=== PATIENT | female | born 1935 | race Caucasian/White ===

== ENCOUNTER 2020-10-05 18:45 | IRF | payer MEDICARE, SELFPAY ==
--- NOTE | ~2020-10-05 | CT_ITS ---
EXAMINATION: CT brain wo con DATE: 10/11/2020 10:58 INDICATION: Change in mental status TECHNIQUE: Computed tomography (CT) of the head was performed without intravenous contrast. Sagittal and coronal reconstructions were performed. The mA was adjusted according to patient size. Iterative reconstruction technique was employed. The dose-length product was 605.33 mGy-cm. COMPARISON: None FINDINGS: No acute intracranial hemorrhage, acute infarction or abnormal extra axial fluid collection. There is mild scattered white matter hypoattenuation consistent with chronic small vessel ischemic disease. S ymmetric prominence of the sulci and subarachnoid spaces overlying the convexities consistent with mi ld to moderate age-appropriate diffuse cerebral volume loss. Ventricles are normal and symmetric. No mass/mass effect. Changes of bilateral intraocular lens replacement. Postoperative change of prior l eft mastoidectomy with small amount of partially air containing debris at the mastoidectomy defect. A dditional small amount of debris/cerumen at the right external auditory canal. Right mastoid air cell s are clear. Mild mucosal thickening at the right maxillary sinus. Intracranial calcified cerebral at herosclerosis is noted. IMPRESSION: 1. No acute intracranial process. 2. Age-related changes including mild to moderate diffuse volume loss and mild scattered white matter hypoattenuation consistent with chronic small vessel ischemic disease. Reviewed, dictated and finalized at location B. TION DIRECTOR IMPRESSION: 1. No acute intracranial process. 2. Age-related changes including mild to moderate diffuse volume loss and mild scattered white matter hypoattenuation consistent with chronic small vessel isc hemic disease.
--- NOTE | 2020-10-05 18:45 | ADMGEN ---
This patient, Evelyne Goldberg, was admitted to [facility] Room 223-01. Patient/family oriented to hospital policies and general routines including ID bracelet, bed and alarms, visiting hours, pain management, procedures, bathroom and other care routines, personal items, smoking policy, room service/diet, and visiting hours. Information on how to activate the Rapid Response Team has been discussed. Patient/Family are encouraged to report perceived risks to care and to ask questions if they do not understand what they are told or what they should do.
[2020-10-05 22:00] VITALS: BP 149/50; PULSE 73; RESP 20; TEMP 36.9; O2SAT 98
[2020-10-05 23:55] VITALS: PULSE 73
[2020-10-05] MEDS: METOPROLOL TARTRATE 25 MG TABLET PO (23:55)
--- NOTE | 2020-10-06 00:46 | PHAR ---
PHARMACY VERIFIED HOME MED: * USE FROM HOME * Ibrutinib [Imbruvica] 140 mg Capsule Take 2 capsules by mouth daily
[2020-10-06 06:00] VITALS: BP 160/53; PULSE 66; RESP 18; TEMP 36.6; O2SAT 94
[2020-10-06] MEDS: POTASSIUM CHLORIDE 10 MEQ TABLET.ER PO (09:41)
[2020-10-06 09:42] VITALS: PULSE 66
[2020-10-06] MEDS: hydroCHLOROthiazide 25 MG TABLET PO (09:42)
[2020-10-06] MEDS: METOPROLOL TARTRATE 25 MG TABLET PO ×2 (09:42→20:31)
[2020-10-06] MEDS: FAMOTIDINE 20 MG TABLET PO ×2 (09:42→17:47)
[2020-10-06] MEDS: FOLIC ACID 1 MG TABLET PO (09:42)
[2020-10-06] MEDS: SIMVASTATIN 20 MG TABLET PO (09:42)
[2020-10-06] MEDS: BACLOFEN 10 MG TABLET 20 MG PO ×3 (09:42→17:47)
[2020-10-06] MEDS: THERAPEUTIC MULTIVITAMINS/MINERALS TAB (*BKC) 1 TABLET PO (09:42)
[2020-10-06] MEDS: CYANOCOBALAMIN INJ 1,000 MCG/ML VIAL 1000 MCG IM (12:21)
[2020-10-06 13:06] VITALS: BMI 32.1
[2020-10-06 13:08] VITALS: BMI 32.1
[2020-10-06 14:00] VITALS: BP 129/43; PULSE 68; RESP 16; TEMP 36.7; O2SAT 97
--- NOTE | 2020-10-06 15:11 | RPD ---
INDIVIDUALIZED PLAN OF CARE FOR Evelyne Goldberg Brief Synthesis of Pre-Admission Screen, Post-Admission Evaluation and Therapy Evaluations: The patient presents to rehab with severe T11 compression fracture and subsequent posterior bipedicular approach vertebral body augmentation. Comorbidities includes chronic lymphocytic leukemia, lymphoma, hyperlipidemia, hypertension, lymphedema, macrocytosis, pancreatitis, restless leg syndrome, vitamin B12 deficiency anemia, UTI, CELSA, and hypokalemia. The complexity of the patient's medical management, nursing, and therapy needs require an inpatient rehab hospital stay with a physician-led interdisciplinary team approach. The patient?s needs will be best met in an intensive program vs. at a lower level of care. The patient requires physician services for medical oversight, management of postop complications in setting of present comorbidities, and pain management. She will be followed at least three times a week by the rehabilitation physician. Labs will be drawn to monitor blood counts and electrolytes periodically. The patient requires nursing services for DVT prophylactics, infection protection, medication management and education, pressure relief, and wound care. Deficits include:ADLs, Balance, Endurance, Family Training/Education, Mobility, Pain Management, ROM, Safety, Strength, Transfers Divemaster/Case Management for: Discharge Planning and Patient/Family Counseling Physical Therapy: 5 days per week for 90 minutes. Treatments may include: Therapeutic Exercise, Gait Training, Neuromuscular Re-education, Transfer Training, Community Reintegration, Bed Mobility, Patient/Family Education, Wheelchair Mobility Group Therapy/Concurrent Therapy Rationales: -Improve attention span during functional activities in a distracted environment. -Enhance problem solving and/or adequate judgment skills during functional activities in a distracted environment. -Promote increased safety awareness in a distracted environment to reduce fall risk with functional tasks, transfers, and ambulation to allow a more safe, self-sufficient return to the home environment. -Improve dynamic balance skills to promote safety and independence with functional activities in a distracted environment for maximum gain. Occupational Therapy: 5 days per week for 90 minutes. Treatments may include: Therapeutic Exercise, Therapeutic Activity, Cognitive Training, Self-Care Transfer Training, Community Reintegration, Home Management, Patient/Family Education, Wheelchair Mobility Training, Energy Conservation Training Group Therapy/Concurrent Therapy Rationales: -Allow therapist to observe and teach generalization and carry-over of skills learned in individual therapy. -Enhance problem solving and sequencing skills during therapeutic activities in a distracted environment. -Promote increased safety awareness in a realistic setting to reduce fall risk with functional tasks due to visual and verbal distractions. -Increase functional level with ADLs, ADL transfers and use of adaptive equipment through therapeutic activities with others while promoting safety to allow a more safe, self-sufficient return home. Medical Prognosis: Good Anticipated Length of Stay: 14 days Rehab Goals: Eating Goal: 06-Independent Oral Hygiene Goal: 06-Independent Toileting Hygiene Goal: 06-Independent Shower/Bathe Self Goal: 06-Independent Upper Body Dressing Goal: 06-Independent Lower Body Dressing Goal: 06-Independent Putting On/Taking Off Footwear Goal: 06-Independent Rolling Left and Right Goal: 06-Independent Sit to Lying Goal: 06-Independent Lying to Sitting on Side of Bed Goal: 06-Independent Sit to Stand Goal: 06-Independent Chair/[id number] Transfer Goal: 06-Independent Toilet Transfer Goal: 06-Independent Car Transfer Goal: 06-Independent Walk 10' Goal: 06-Independent Walk 50' with Two Turns Goal: 06-Independent Walk 150' Goal: 06-Independent Walk 10' on Uneven S
--- NOTE | 2020-10-06 16:47 | WPDREHABHP ---
H&P: HPI History of Present Illness Date/Time: 10/06/20 16:47 Chief complaint: T11 Compression Fx Narrative: The patient's primary rehab impairment category is Spinal cord dysfunction non traumatic in nature The etiologic diagnosis is severe T11 compression fracture I saw this patient [id number] on on October 06, 2020 at 12:30 p.m. The patient is a 85 years old female with a past medical history significant for chronic lymphocytic leukemia, hypertension, lipidemia, B12 deficiency presented to [facility] with Hospital Emergency Room Department on October 01, 2020 for symptoms of vomiting and back pain. She reported that she has had mid lower back pain since , when she was lifting a turkey unheard and audible crack with sudden onset of pain. Imaging in Emergency Room Department showed severe T11 compression fracture. Lipase found to be elevated at 805. Potassium level at 3.4, IV KCl order creatinine 1.56 with baseline of 1.22, orders for IV fluids, hold losartan, nonobstructing stones observed on CT scan, right upper kidney calcification noted on CT scan. CT imaging revealed abnormalities of the pancreas specifically noted a cyst versus Fatty versus neoplastic mass. She was also found with a urinary tract infection was started on IV clindamycin and morphine for pain chronic finding on CBC with macrocytosis identified in relation to chronic lymphocytic leukemia. Twelve 5 the patient transition to p.o. Bactrim DS for UTI, hypokalemia resolved, achy I improving, and T11 compression fracture pain controlled with medication and IR consult. On October 04, 2020 the patient underwent a T11 posterior bi pedicular approach vertebral body augmentation. IR abnormal CT finding of cyst versus new plasma stable since 10/30 017 thus likelihood of malignancy is low, IR recommended repeated MRI CT in 1 year. October 05, 2020 the patient was mod assist for transfer the patient will not DC to rehab on DVT prophylaxis. As Bactrim order for UTI that will be completed on October 06, 2020 Therapy was initiated at the acute care facility and the patient transferred to us from [facility] on October 05, 2020 FALLS OR SURGERIES: the patient has had surgery in the last 100 days( [id number] kyphoplasty posterior bi pedicular approach of the body augmentation), patient has had 1 fall in the past year, no falls with injury in the past year. 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 PAST SURGICAL HISTORY: Cholecystectomy 2008, hysterectomy 2008. SOCIAL HISTORY: . The patient lives alone in a 1 story home with 2 steps to enter. The patient states her kids are able stay with her falling rehab if she needs assistance. Her son in [facility] arrangements have already been made for the patient to have someone with her 247 following rehab DC. The patient was independent in all ADLs and IADL S prior to this hospitalization, he intermittently uses a quad cane with ambulating outside of familiar surroundings for safety. The patient denies tobacco, alcohol, or illicit drug use, FAMILY HISTORY: mother had cancer. Father had cancer. Brother had pancreatic cancer. PRIOR LEVEL OF FUNCTION: Eating was [INDEPENDENT] Oral Care was [INDEPENDENT] Toileting Hygiene was [INDEPENDENT] Shower/Bathing was [INDEPENDENT] Upper Body Dressing was [INDEPENDENT] Lower Body Dressing was [INDEPENDENT] Donning/Munden Footwear was [INDEPENDENT] Rolling Left and Right was [INDEPENDENT] Sit to Lying was [INDEPENDENT] Lying to Sitting was [INDEPENDENT] Sit to Stand was [INDEPENDENT] Bed to Chair Transfers was [INDEPENDENT] Toilet Transfers was [INDEPENDENT] Walking was [INDEPENDENT] [>500 feet] with a Quad cane
[2020-10-06 20:31] VITALS: PULSE 80
[2020-10-07] VITALS (8 sets, daily range): BP systolic 130–147; BP diastolic 52–67; PULSE 58–81; RESP 18–20; TEMP 35.9–36.6; O2SAT 96–98
[2020-10-07 05:17] LABS: Anion Gap 5 mmol/L (8-16); Blood Urea Nitrogen 23 mg/dL (7-17); Calcium 9.3 mg/dL (8.4-10.2); Carbon Dioxide 28 mmol/L (22-30); Chloride 105 mmol/L (98-107); Estimated CRCL calculation 23 ml/min; Estimated Glomerular Filt Rate 36; Glucose 107 mg/dL (65-105); Potassium 3.7 mmol/L (3.4-5.0); Sodium 138 mmol/L (137-145)
[2020-10-07 05:19] LABS: Basophils Percent Auto 0.3 % (0.2-1.2); Eosinophils Absolute Auto 0.1 K/mm3 (0-0.3); Eosinophils Percent Auto 1.4 % (0-4.4); Hematocrit 28.5 % (37.0-47.0); Hemoglobin 9.2 g/dL (12.0-15.0); Immature Granulocyte Absolute 0.17 K/mm3 (0.00-0.031); Immature Granulocyte Percent A 1.8 % (0-0.5); Lymphocytes Absolute Auto 2.95 K/mm3 (0.9-3.2); Lymphocytes Percent Auto 32.1 % (18.3-44.2); Mean Corpuscular HGB Conc 32.3 g/dl (32-36); Mean Corpuscular Volume 108.4 fl (80-100); Mean Platelet Volume 11.4 fl (7.4-10.4); Monocytes Absolute Auto 1.1 K/mm3 (0.1-0.6); Neutrophils Absolute Auto 4.8 K/mm3 (1.3-6.7); Neutrophils Percent Auto 52.4 % (45.5-73.1); Platelet Count Result 159 k/mm3 (150-375); Red Blood Count 2.63 M/mm3 (4.2-5.4); Red Cell Distribution Width 14.4 % (11.5-14.5); White Blood Count 9.2 K/mm3 (4.5-10.0)
[2020-10-07] MEDS: METOPROLOL TARTRATE 25 MG TABLET PO ×2 (09:06→20:20)
[2020-10-07] MEDS: THERAPEUTIC MULTIVITAMINS/MINERALS TAB (*BKC) 1 TABLET PO (09:06)
[2020-10-07] MEDS: SIMVASTATIN 20 MG TABLET PO (09:06)
[2020-10-07] MEDS: FAMOTIDINE 20 MG TABLET PO ×2 (09:06→17:36)
[2020-10-07] MEDS: hydroCHLOROthiazide 25 MG TABLET PO (09:06)
[2020-10-07] MEDS: FOLIC ACID 1 MG TABLET PO (09:06)
[2020-10-07] MEDS: POTASSIUM CHLORIDE 10 MEQ TABLET.ER PO (09:07)
[2020-10-07] MEDS: BACLOFEN 10 MG TABLET 20 MG PO ×3 (09:08→17:36)
[2020-10-07] MEDS: ACETAMINOPHEN 325 MG TABLET 650 MG PO (11:27)
[2020-10-08 06:00] VITALS: BP 152/47; PULSE 59; RESP 20; TEMP 36.7; O2SAT 96
[2020-10-08 09:53] VITALS: PULSE 72
[2020-10-08] MEDS: METOPROLOL TARTRATE 25 MG TABLET PO ×2 (09:53→20:20)
[2020-10-08] MEDS: hydroCHLOROthiazide 25 MG TABLET PO (09:54)
[2020-10-08] MEDS: THERAPEUTIC MULTIVITAMINS/MINERALS TAB (*BKC) 1 TABLET PO (09:54)
[2020-10-08] MEDS: SIMVASTATIN 20 MG TABLET PO (09:55)
[2020-10-08] MEDS: FOLIC ACID 1 MG TABLET PO (09:55)
[2020-10-08] MEDS: BACLOFEN 10 MG TABLET 20 MG PO (09:55)
[2020-10-08] MEDS: FAMOTIDINE 20 MG TABLET PO ×2 (09:55→17:29)
[2020-10-08] MEDS: POTASSIUM CHLORIDE 10 MEQ TABLET.ER PO (09:56)
--- NOTE | 2020-10-08 10:09 | WPDNEURORHBP ---
Subjective Date/time seen: 10/08/20 10:09 85 years old lady admitted to the rehab floor with T11 compression fracture and spinal cord dysfunction in addition to chronic lymphocytic leukemia, hypertension, hyperlipidemia, B12 deficiency, since admission she has been noted to be very drowsy has been receiving baclofen 20 mg t.i.d. which were today decreased to10mg t.i.d. in addition other medications are okay also her urine will be repeated routine lab is normal Review of Systems Review of Systems: All systems reviewed & are unremarkable except as noted in HPI and below Functional Status Ambulation Ability Ability to Ambulate 10 Feet: Contact Guard Ability to Ambulate 50 Feet With 2 Turns: Contact Guard Ambulation Assistive Devices: Walker, Wheeled Exam Narrative: Exam Narrative: on examination she is awake alert cooperative trying to take the medication with her breakfast but having some difficulties in swallowing has to be pushed with the p.o. feeding and fluid otherwise her speech is not dysphasic not dysarthric though of low volume heart is regular lungs clear with no rhonchi or crepitations abdomen is soft nontender and neurological examination unchanged Objective Data Vital Signs Vital Signs: Vital Signs - 24 hr 10/07/20 11:27 10/07/20 14:00 10/07/20 20:20 Temperature 36.6 C 35.9 C L Pulse Rate 60 67 Respiratory Rate 18 Blood Pressure 141/52 H Pulse Oximetry 97 10/07/20 22:00 10/08/20 06:00 10/08/20 09:53 Temperature 36.4 C L 36.7 C Pulse Rate 58 L 59 L 72 Respiratory Rate 20 20 Blood Pressure 147/55 H 152/47 H Pulse Oximetry 97 96 Intake/Output Intake/Output: Intake & Output 10/05/20 10/06/20 10/07/20 10/08/20 23:59 23:59 23:59 23:59 Intake Total 480 240 120 Balance 480 240 120 Meds/Results Medications: Active Medications Generic Name Dose Route Start Last Admin Trade Name Freq PRN Reason Stop Dose Admin Acetaminophen 650 mg 10/07/20 11:17 10/07/20 11:27 Acetaminophen 325 Mg Tablet PO 650 mg Q6H PRN Administration Mild Pain (1-3) or Fever Baclofen 10 mg 10/08/20 13:00 Baclofen 10 Mg Tablet PO TID [facility] Cyanocobalamin 1,000 mcg 10/06/20 09:00 10/06/20 12:21 Cyanocobalamin Inj 1,000 Mcg/Ml Vial IM 1,000 mcg Q30D ROSALINE Administration Famotidine 20 mg 10/06/20 09:00 10/08/20 09:55 Famotidine 20 Mg Tablet PO 20 mg BID ROSALINE Administration Folic Acid 1 mg 10/06/20 09:00 10/08/20 09:55 Folic Acid 1 Mg Tablet PO 1 mg DAILY ROSALINE Administration Hydrochlorothiazide 25 mg 10/06/20 09:00 10/08/20 09:54 Hydrochlorothiazide 25 Mg Tablet PO 25 mg DAILY ROSALINE Administration Metoprolol Tartrate 25 mg 10/05/20 22:45 10/08/20 09:53 Metoprolol Tartrate 25 Mg Tablet PO 25 mg Q12HR ROSALINE Administration Multivitamins/Calcium 1 tablet 10/06/20 09:00 10/08/20 09:54 Therapeutic Multivitamins/Minerals Tab (*Bkc) PO 1 tablet DAILY ROSALINE Administration Potassium Chloride 10 meq 10/06/20 08:00 10/08/20 09:56 Potassium Chloride 10 Meq Tablet.Er PO 10 meq DAILY@0800 ROSALIEN Administration Simvastatin 20 mg 10/06/20 09:00 10/08/20 09:55 Simvastatin 20 Mg Tablet PO 20 mg DAILY ROSALINE Administration Progress Note: A&P Assessment and Plan (1) Restless leg syndrome: Code(s): G25.81 - Restless legs syndrome Status: Acute (2) Lymphedema: Code(s): I89.0 - Lymphedema, not elsewhere classified Status: Acute (3) UTI (urinary tract infection): Code(s): N39.0 - Urinary tract infection, site not specified Status: Acute (4) Pancreatic cyst: Code(s): K86.2 - Cyst of pancreas Status: Acute (5) B12 deficiency: Code(s): E53.8 - Deficiency of other specified B group vitamins Status: Acute (6) Hyperlipidemia: Code(s): E78.5 - Hyperlipidemia, unspecified Status: Acute (7) Hypertension: Code(s): I10 - Essential (primary) hypert
[2020-10-08] MEDS: ACETAMINOPHEN 325 MG TABLET 650 MG PO (11:39)
[2020-10-08 12:04] LABS: Add Urine Microscopic? YES; Appearance Urine Clear (Clear); Bacteria Urine Trace /hpf; Bilirubin Urine Negative (Negative); Blood Urine Negative (Negative); Color Urine Yellow (Yellow); Glucose Urine UA Negative (Negative); Ketones Urine Negative (Negative); Leukocyte Esterase Ur Trace LEU/UL (Negative); Mucus Urine Rare /lpf; Nitrate Urine Negative (Negative); Protein Urine Negative (Negative); Specific Grav Ur 1.012 (1.001-1.035); Squamous Epithelial Cell Urine Rare /hpf (Few); Urobilinogen Urine Negative mg/dL (<2.0); WBC Urine 16-20 /hpf
[2020-10-08] MEDS: BACLOFEN 10 MG TABLET PO ×2 (13:05→17:29)
[2020-10-08 14:00] VITALS: BP 138/53; PULSE 63; RESP 20; TEMP 36.3; O2SAT 97
[2020-10-08 20:20] VITALS: PULSE 72
[2020-10-08 20:58] VITALS: BP 143/54; PULSE 72; RESP 18; TEMP 36.2; O2SAT 94
[2020-10-08 21:00] VITALS: BP 143/54; PULSE 72; RESP 18; TEMP 36.2; O2SAT 94
[2020-10-09 05:25] VITALS: BP 151/48; PULSE 76; RESP 18; TEMP 36.4; O2SAT 97
[2020-10-09] MEDS: FOLIC ACID 1 MG TABLET PO (08:38)
[2020-10-09] MEDS: FAMOTIDINE 20 MG TABLET PO ×2 (08:38→17:13)
[2020-10-09] MEDS: POTASSIUM CHLORIDE 10 MEQ TABLET.ER PO (08:38)
[2020-10-09 08:39] VITALS: PULSE 78
[2020-10-09] MEDS: SIMVASTATIN 20 MG TABLET PO (08:39)
[2020-10-09] MEDS: THERAPEUTIC MULTIVITAMINS/MINERALS TAB (*BKC) 1 TABLET PO (08:39)
[2020-10-09] MEDS: METOPROLOL TARTRATE 25 MG TABLET PO ×2 (08:39→20:15)
[2020-10-09] MEDS: hydroCHLOROthiazide 25 MG TABLET PO (08:39)
[2020-10-09] MEDS: BACLOFEN 10 MG TABLET PO ×3 (08:40→17:13)
--- NOTE | 2020-10-09 11:31 | WPDNEURORHBP ---
Subjective Date/time seen: 10/09/20 11:31 85 years old lady admitted to the rehab floor with T11 compression fracture and spinal cord dysfunction in addition to the ongoing diagnosis of 1. Chronic lymphocytic leukemia 2. Hyper 3. Hyperlipidemia 4. B12 deficiency during the hospitalization here she was becoming excessively sleepy baclofen was decreased [id number] t.i.d. to10mg t.i.d. and she looks better. Routine lab is normal except hemoglobin is 9.2 with MCV 108.4 definitely abnormal that is most likely secondary to B12 deficiency for which she is being treated her BUN is 23 with creatinine 1.4 and GFR only 36 Review of Systems Review of Systems: All systems reviewed & are unremarkable except as noted in HPI and below Functional Status Ambulation Ability Ability to Ambulate 10 Feet: Minimum Assistance X 1 Ability to Ambulate 50 Feet With 2 Turns: Contact Guard Ability to Ambulate 150 Feet: Contact Guard Ambulation Assistive Devices: Walker, Standard Exam Narrative: Exam Narrative: awake alert operative has no specific complaints. Ear nose throat examination normal. Neck is supple with no restriction of the range of motion and no thyromegaly lymphadenopathy or cervical bruits. Heart regular with no murmur. Lungs clear to auscultation with no rhonchi or crepitations. Abdomen is soft with no organomegaly normal bowel sounds and nontender. Neurological examination revealed her to be awake alert following the instructions very well speech not dysphasic not dysarthric nor dysphonic. Extraocular movements are full with no nystagmus. Facial symmetric. With no sensory deficit. Tongue in the midline. Motor examination generally decreased but no focal motor deficit. She has decreased sensation distally in both lower extremities with sluggish reflexes at the knees and ankles and plantar responses are downgoing. She had difficulties in performing heel to knee to roberts but she was able to perform finger to nose to finger. Objective Data Vital Signs Vital Signs: Vital Signs - 24 hr 10/08/20 14:00 10/08/20 20:20 10/08/20 20:58 Temperature 36.3 C L 36.2 C L Pulse Rate 63 72 72 Respiratory Rate 20 18 Blood Pressure 138/53 L 143/54 H Pulse Oximetry 97 94 10/08/20 21:00 10/09/20 05:25 10/09/20 08:39 Temperature 36.2 C L 36.4 C Pulse Rate 72 76 78 Respiratory Rate 18 18 Blood Pressure 143/54 H 151/48 H Pulse Oximetry 94 97 Intake/Output Intake/Output: Intake & Output 10/06/20 10/07/20 10/08/20 10/09/20 23:59 23:59 23:59 23:59 Intake Total 480 240 240 240 Balance 480 240 240 240 Meds/Results Medications: Active Medications Generic Name Dose Route Start Last Admin Trade Name Freq PRN Reason Stop Dose Admin Acetaminophen 650 mg 10/07/20 11:17 10/08/20 11:39 Acetaminophen 325 Mg Tablet PO 650 mg Q6H PRN Administration Mild Pain (1-3) or Fever Baclofen 10 mg 10/08/20 13:00 10/09/20 08:40 Baclofen 10 Mg Tablet PO 10 mg TID ROSALINE Administration Cyanocobalamin 1,000 mcg 10/06/20 09:00 10/06/20 12:21 Cyanocobalamin Inj 1,000 Mcg/Ml Vial IM 1,000 mcg Q30D ROSALINE Administration Famotidine 20 mg 10/06/20 09:00 10/09/20 08:38 Famotidine 20 Mg Tablet PO 20 mg BID ROSALINE Administration Folic Acid 1 mg 10/06/20 09:00 10/09/20 08:38 Folic Acid 1 Mg Tablet PO 1 mg DAILY ROSALINE Administration Hydrochlorothiazide 25 mg 10/06/20 09:00 10/09/20 08:39 Hydrochlorothiazide 25 Mg Tablet PO 25 mg DAILY ROSALINE Administration Metoprolol Tartrate 25 mg 10/05/20 22:45 10/09/20 08:39 Metoprolol Tartrate 25 Mg Tablet PO 25 mg Q12HR ROSALINE Administration Multivitamins/Calcium 1 tablet 10/06/20 09:00 10/09/20 08:39 Therapeutic Multivitamins/Minerals Tab (*Bkc) PO 1 tablet DAILY ROSALINE Administration Potassium Chloride 10 meq 10/06/20 08:00 10/09/20 08:38 Potassium Chloride 10 Meq Tablet.Er PO 10 meq DAILY@0800 ROSALINE Administration Simvastatin 20 mg 1
[2020-10-09 14:00] VITALS: BP 141/46; PULSE 63; RESP 20; TEMP 36.2; O2SAT 99
[2020-10-09 20:00] VITALS: PULSE 73; RESP 18; O2SAT 99
[2020-10-09 20:15] VITALS: PULSE 73
[2020-10-09] MEDS: ACETAMINOPHEN 325 MG TABLET 650 MG PO (20:21)
[2020-10-09 22:00] VITALS: BP 135/44; PULSE 73; RESP 18; TEMP 36.9; O2SAT 99
[2020-10-10] VITALS (7 sets, daily range): BP systolic 118–135; BP diastolic 40–53; PULSE 65–89; RESP 12–18; TEMP 36.8–37.1; O2SAT 93–97
[2020-10-10] MEDS: POTASSIUM CHLORIDE 10 MEQ TABLET.ER PO (08:57)
[2020-10-10] MEDS: FAMOTIDINE 20 MG TABLET PO ×2 (08:57→17:23)
[2020-10-10] MEDS: THERAPEUTIC MULTIVITAMINS/MINERALS TAB (*BKC) 1 TABLET PO (08:57)
[2020-10-10] MEDS: SIMVASTATIN 20 MG TABLET PO (08:58)
[2020-10-10] MEDS: BACLOFEN 10 MG TABLET PO ×3 (08:58→17:23)
[2020-10-10] MEDS: hydroCHLOROthiazide 25 MG TABLET PO (08:58)
[2020-10-10] MEDS: FOLIC ACID 1 MG TABLET PO (08:58)
[2020-10-10] MEDS: METOPROLOL TARTRATE 25 MG TABLET PO ×2 (08:58→20:26)
--- NOTE | 2020-10-10 13:07 | PC.NURSE ---
urine culture/sensitivity results received and reported to Dr. Keating, initial dose of bactrim DS given this AM, no adverse affects noted at this time
[2020-10-10] MEDS: ACETAMINOPHEN 325 MG TABLET 650 MG PO (20:35)
[2020-10-11 06:00] VITALS: BP 109/30; PULSE 59; RESP 14; TEMP 36.5; O2SAT 95
[2020-10-11] MEDS: POTASSIUM CHLORIDE 10 MEQ TABLET.ER PO (07:42)
[2020-10-11] MEDS: hydroCHLOROthiazide 25 MG TABLET PO (08:25)
[2020-10-11] MEDS: BACLOFEN 10 MG TABLET PO ×3 (08:25→16:38)
[2020-10-11] MEDS: FAMOTIDINE 20 MG TABLET PO ×2 (08:25→16:37)
[2020-10-11] MEDS: FOLIC ACID 1 MG TABLET PO (08:25)
[2020-10-11] MEDS: THERAPEUTIC MULTIVITAMINS/MINERALS TAB (*BKC) 1 TABLET PO (08:26)
[2020-10-11] MEDS: METOPROLOL TARTRATE 25 MG TABLET PO ×2 (08:26→20:19)
[2020-10-11] MEDS: SIMVASTATIN 20 MG TABLET PO (08:28)
[2020-10-11] MEDS: ACETAMINOPHEN 325 MG TABLET 650 MG PO (09:01)
--- NOTE | 2020-10-11 09:37 | WPDNEURORHBP ---
Subjective Date/time seen: 10/11/20 09:37 85 years old lady with T11 compression fracture and spinal cord dysfunction in addition to the ongoing diagnosis of chronic lymphocytic leukemia 2. Hypertension 3. Hyperlipidemia 4. B12 deficiency. Initially was becoming excessively sleepy when baclofen were decreased [id number] 3 times a day to 10 mg 3 times a day but is still somewhat drowsy and family's concern that she is more confused. She does have a UTI and receiving the treatment accordingly. Will go ahead and check CBC and BMP and also CT scan of the head Review of Systems Review of Systems: All systems reviewed & are unremarkable except as noted in HPI and below Functional Status Ambulation Ability Ability to Ambulate 10 Feet: Minimum Assistance X 1 Ability to Ambulate 50 Feet With 2 Turns: Minimum Assistance X 1 Ability to Ambulate 150 Feet: Minimum Assistance X 1 Ambulation Assistive Devices: Walker, Wheeled Exam Narrative: Exam Narrative: continues to be awake alert cooperative has no specific complaints, ear nose throat examination is normal, neck is supple with no restriction of the range of motion and no thyromegaly lymphadenopathy or cervical bruits heart regular with no murmur lungs clear to auscultation with no rhonchi or crepitation abdomen is soft with no organomegaly and normal bowel sounds neurologically she is awake alert following instructions very well cranial examination is unchanged and so as the general neurological examination Objective Data Vital Signs Vital Signs: Vital Signs - 24 hr 10/10/20 14:00 10/10/20 20:00 10/10/20 20:26 Temperature 36.8 C Pulse Rate 81 89 Respiratory Rate 18 Blood Pressure 126/53 L Pulse Oximetry 95 95 10/10/20 20:30 10/11/20 06:00 Temperature 37.0 C 36.5 C Pulse Rate 85 59 L Respiratory Rate 12 14 Blood Pressure 118/40 L 109/30 L Pulse Oximetry 97 95 Intake/Output Intake/Output: Intake & Output 10/08/20 10/09/20 10/10/20 10/11/20 23:59 23:59 23:59 23:59 Intake Total 240 720 840 120 Balance 240 720 840 120 Meds/Results Medications: Active Medications Generic Name Dose Route Start Last Admin Trade Name Freq PRN Reason Stop Dose Admin Acetaminophen 650 mg 10/07/20 11:17 10/11/20 09:01 Acetaminophen 325 Mg Tablet PO 650 mg Q6H PRN Administration Mild Pain (1-3) or Fever Baclofen 10 mg 10/08/20 13:00 10/11/20 08:25 Baclofen 10 Mg Tablet PO 10 mg TID ROSALINE Administration Cyanocobalamin 1,000 mcg 10/06/20 09:00 10/06/20 12:21 Cyanocobalamin Inj 1,000 Mcg/Ml Vial IM 1,000 mcg Q30D ROSALINE Administration Famotidine 20 mg 10/06/20 09:00 10/11/20 08:25 Famotidine 20 Mg Tablet PO 20 mg BID ROSALINE Administration Folic Acid 1 mg 10/06/20 09:00 10/11/20 08:25 Folic Acid 1 Mg Tablet PO 1 mg DAILY ROSALINE Administration Hydrochlorothiazide 25 mg 10/06/20 09:00 10/11/20 08:25 Hydrochlorothiazide 25 Mg Tablet PO 25 mg DAILY ROSALINE Administration Metoprolol Tartrate 25 mg 10/05/20 22:45 10/11/20 08:26 Metoprolol Tartrate 25 Mg Tablet PO 25 mg Q12HR ROSALINE Administration Multivitamins/Calcium 1 tablet 10/06/20 09:00 10/11/20 08:26 Therapeutic Multivitamins/Minerals Tab (*Bkc) PO 1 tablet DAILY ROSALINE Administration Potassium Chloride 10 meq 10/06/20 08:00 10/11/20 07:42 Potassium Chloride 10 Meq Tablet.Er PO 10 meq DAILY@0800 ROSALINE Administration Simvastatin 20 mg 10/06/20 09:00 10/11/20 08:28 Simvastatin 20 Mg Tablet PO 20 mg DAILY ROSALINE Administration Trimethoprim/Sulfamethoxazole 1 tab 10/10/20 10:55 10/11/20 08:25 Trimethoprim/Sulfamethoxazole 160-800 Mg Ds Tablet PO 10/17/20 10:56 1 tab Q12HR ROSALINE Administration Progress Note: A&P Assessment and Plan (1) Restless leg syndrome: Code(s): G25.81 - Restless legs syndrome Status: Acute (2) Lymphedema: Code(s): I89.0 - Lymphedema, not elsewhere classified Status: Acute
[2020-10-11] MEDS: ONDANSETRON HCL ODT 4 MG TABLET PO (10:08)
--- NOTE | 2020-10-11 11:03 | PCPTNOTE ---
Pt taken down for CT scan with 19 minutes remaining in PT treatment. Marry Blue, DPT
[2020-10-11 12:11] LABS: Hematocrit 32.9 % (37.0-47.0); Hemoglobin 10.8 g/dL (12.0-15.0); Mean Corpuscular HGB Conc 32.8 g/dl (32-36); Mean Corpuscular Hemoglobin 35.6 pg (26-34); Mean Corpuscular Volume 108.6 fl (80-100); Mean Platelet Volume 11.1 fl (7.4-10.4); Platelet Count Result 176 k/mm3 (150-375); Red Blood Count 3.03 M/mm3 (4.2-5.4); Red Cell Distribution Width 14.3 % (11.5-14.5); White Blood Count 18.6 K/mm3 (4.5-10.0)
[2020-10-11 12:27] LABS: Anion Gap 7 mmol/L (8-16); Blood Urea Nitrogen 46 mg/dL (7-17); Calcium 10.2 mg/dL (8.4-10.2); Carbon Dioxide 31 mmol/L (22-30); Chloride 98 mmol/L (98-107); Estimated CRCL calculation 17 ml/min; Estimated Glomerular Filt Rate 24; Glucose 132 mg/dL (65-105); Potassium 4.7 mmol/L (3.4-5.0); Sodium 136 mmol/L (137-145)
--- NOTE | 2020-10-11 14:02 | PCPTNOTE ---
Evelyne Goldberg was evaluated for a wheeled walker on 10/11/2020 by this physical therapist. The wheeled walker will resolve patient's mobility limitations and will be used for ADL's within the home. The patient can safely use the wheeled walker. ?The wheeled walker will resolve the patient?s mobility deficits, including decreased endurance, balance and strength.
[2020-10-11 14:12] VITALS: BP 128/55; PULSE 64; RESP 13; TEMP 36.6; O2SAT 99
[2020-10-11 20:07] VITALS: BP 120/34; PULSE 70; O2SAT 94
[2020-10-11 20:12] VITALS: BP 118/42
[2020-10-11 20:19] VITALS: PULSE 70
[2020-10-11 21:44] VITALS: PULSE 59; RESP 18; TEMP 36.4; O2SAT 91
[2020-10-12 05:40] VITALS: BP 120/41; PULSE 62; RESP 20; TEMP 36.2; O2SAT 97
[2020-10-12] MEDS: ONDANSETRON HCL ODT 4 MG TABLET PO (07:38)
[2020-10-12] MEDS: BACLOFEN 10 MG TABLET PO ×3 (07:40→17:31)
[2020-10-12] MEDS: POTASSIUM CHLORIDE 10 MEQ TABLET.ER PO (07:40)
[2020-10-12] MEDS: FAMOTIDINE 20 MG TABLET PO ×2 (07:40→17:31)
[2020-10-12 07:41] VITALS: PULSE 62
[2020-10-12] MEDS: SIMVASTATIN 20 MG TABLET PO (07:41)
[2020-10-12] MEDS: FOLIC ACID 1 MG TABLET PO (07:41)
[2020-10-12] MEDS: hydroCHLOROthiazide 25 MG TABLET PO (07:41)
[2020-10-12] MEDS: METOPROLOL TARTRATE 25 MG TABLET PO ×2 (07:41→20:32)
[2020-10-12] MEDS: THERAPEUTIC MULTIVITAMINS/MINERALS TAB (*BKC) 1 TABLET PO (07:41)
--- NOTE | 2020-10-12 09:41 | WPDNEURORHBP ---
Subjective Date/time seen: 10/12/20 09:41 85 years old lady with T11 compression fracture and spinal cord dysfunction in addition to the ongoing diagnosis of chronic lymphocytic leukemia, hypertension, hyperlipidemia, and B12 deficiency, her urine culture was positive she has been started on the antibiotics according to sensitivity she continues to have leukocytosis but she does have underlying chronic lymphocytic leukemia in addition her MCV 108.6 which is because of the B12 deficiency Review of Systems Review of Systems: All systems reviewed & are unremarkable except as noted in HPI and below Functional Status Ambulation Ability Ability to Ambulate 10 Feet: Contact Guard Ability to Ambulate 50 Feet With 2 Turns: Contact Guard Ability to Ambulate 150 Feet: Minimum Assistance X 1 Ambulation Assistive Devices: Walker, Wheeled Exam Narrative: Exam Narrative: continues to be awake alert in no obvious acute distress, followed the instructions very well, was having some difficulties in swallowing but not anymore, pupils round regular reactive to light equally, visual hawley are full to confrontation, extraocular movements are full with no nystagmus, face symmetrical, motor examination reveals her to have generally decreased strength but no focal motor deficit and her deep tendon reflexes are sluggish plantars are downgoing she has decreased sensation distally in both lower extremities but we are aware that she has underlying B12 deficiency which she is being treated with Objective Data Vital Signs Vital Signs: Vital Signs - 24 hr 10/11/20 14:12 10/11/20 20:07 10/11/20 20:12 Temperature 36.6 C Pulse Rate 64 70 Respiratory Rate 13 Blood Pressure 128/55 L 120/34 L 118/42 L Pulse Oximetry 99 94 10/11/20 20:19 10/11/20 21:44 10/12/20 05:40 Temperature 36.4 C L 36.2 C L Pulse Rate 70 59 L 62 Respiratory Rate 18 20 Blood Pressure 120/41 L Pulse Oximetry 91 97 10/12/20 07:41 Temperature Pulse Rate 62 Respiratory Rate Blood Pressure Pulse Oximetry Intake/Output Intake/Output: Intake & Output 10/09/20 10/10/20 10/11/20 10/12/20 23:59 23:59 23:59 23:59 Intake Total 720 840 600 240 Balance 720 840 600 240 Meds/Results Medications: Active Medications Generic Name Dose Route Start Last Admin Trade Name Freq PRN Reason Stop Dose Admin Acetaminophen 650 mg 10/07/20 11:17 10/11/20 09:01 Acetaminophen 325 Mg Tablet PO 650 mg Q6H PRN Administration Mild Pain (1-3) or Fever Baclofen 10 mg 10/08/20 13:00 10/12/20 07:40 Baclofen 10 Mg Tablet PO 10 mg TID ROSALINE Administration Ciprofloxacin 500 mg 10/12/20 18:00 Ciprofloxacin 500 Mg Tab PO Q12H ROSALINE Cyanocobalamin 1,000 mcg 10/06/20 09:00 10/06/20 12:21 Cyanocobalamin Inj 1,000 Mcg/Ml Vial IM 1,000 mcg Q30D ROSALINE Administration Famotidine 20 mg 10/06/20 09:00 10/12/20 07:40 Famotidine 20 Mg Tablet PO 20 mg BID ROSALINE Administration Folic Acid 1 mg 10/06/20 09:00 10/12/20 07:41 Folic Acid 1 Mg Tablet PO 1 mg DAILY ROSALINE Administration Hydrochlorothiazide 25 mg 10/06/20 09:00 10/12/20 07:41 Hydrochlorothiazide 25 Mg Tablet PO 25 mg DAILY ROSALINE Administration Metoprolol Tartrate 25 mg 10/05/20 22:45 10/12/20 07:41 Metoprolol Tartrate 25 Mg Tablet PO 25 mg Q12HR ROSALINE Administration Multivitamins/Calcium 1 tablet 10/06/20 09:00 10/12/20 07:41 Therapeutic Multivitamins/Minerals Tab (*Bkc) PO 1 tablet DAILY ROSALINE Administration Ondansetron HCl 4 mg 10/11/20 10:01 10/12/20 07:38 Ondansetron Hcl Odt 4 Mg Tablet PO 4 mg Q6H PRN Administration Nausea And Vomiting Potassium Chloride 10 meq 10/06/20 08:00 10/12/20 07:40 Potassium Chloride 10 Meq Tablet.Er PO 10 meq DAILY@0800 ROSALINE Administration Simvastatin 20 mg 10/06/20 09:00 10/12/20 07:41 Simvastatin 20 Mg Tablet PO 20 mg DAILY ROSALINE Administration Radiology Results: ITS Impre
--- NOTE | 2020-10-12 12:04 | PCSTNOTE ---
See new plan of care for cognition following completion of cognitive evaluation this date.
[2020-10-12 14:00] VITALS: BP 146/46; PULSE 70; RESP 16; TEMP 36.4; O2SAT 99
[2020-10-12] MEDS: CIPROFLOXACIN 500 MG TAB PO (17:32)
[2020-10-12 20:32] VITALS: PULSE 74
[2020-10-12 21:00] VITALS: BP 111/46; PULSE 69; RESP 12; TEMP 36.4; O2SAT 96
[2020-10-13] MEDS: CIPROFLOXACIN 500 MG TAB PO (05:27)
[2020-10-13 06:00] VITALS: BP 125/40; PULSE 64; RESP 12; TEMP 36.1; O2SAT 100
[2020-10-13] MEDS: POTASSIUM CHLORIDE 10 MEQ TABLET.ER PO (09:41)
[2020-10-13 09:42] VITALS: PULSE 64
[2020-10-13] MEDS: FAMOTIDINE 20 MG TABLET PO ×2 (09:42→17:32)
[2020-10-13] MEDS: SIMVASTATIN 20 MG TABLET PO (09:42)
[2020-10-13] MEDS: FOLIC ACID 1 MG TABLET PO (09:42)
[2020-10-13] MEDS: METOPROLOL TARTRATE 25 MG TABLET PO ×2 (09:42→20:19)
[2020-10-13] MEDS: THERAPEUTIC MULTIVITAMINS/MINERALS TAB (*BKC) 1 TABLET PO (09:42)
[2020-10-13] MEDS: BACLOFEN 10 MG TABLET PO ×3 (09:42→17:32)
[2020-10-13] MEDS: hydroCHLOROthiazide 25 MG TABLET PO (09:42)
--- NOTE | 2020-10-13 12:37 | PCDIET ---
Nutrition Follow-Up Complete: Nutrition Diagnosis: Increased protein needs related to wounds as evidenced by stage 3 pressure ulcer noted. Nutrition Goal: Meet estimated nutritional needs Goal in progress. Patient with average of 37% of meals since 10/07/20. Patient receiving minced and moist diet with Santos BID. Reviewed importance of Santos with regard to healing, and patient reports she has been trying to drink it. Agreeable to try strawberry Ensure Enlive (350kcal, 20g protein) with breakfast. Recommend adding Enlive with breakfast and continuing Santos with lunch and dinner. Last recorded weight is 74.4 kg. Recommend obtaining new weight. Bowel Motility: +BM on 10/12/20 per nursing flowsheet. Labs Reviewed: Hgb (10.8), Hct (32.9), Glu (132), BUN (46), Cr (2.0), Na (136) Meds Noted: Cipro, Vitamin B12, Pepcid, Folic Acid, Hydrochlorothiazide, MVI/minerals, Lopressor, KCl, Zocor Additional Notes: Stage III pressure ulcer to coccyx; integumentary notes reviewed. Will continue to monitor with same goal. Nutrition Monitoring and Evaluation: Will monitor every 5 days,
[2020-10-13 14:00] VITALS: BP 137/58; PULSE 63; RESP 16; TEMP 36.4; O2SAT 100
[2020-10-13 20:19] VITALS: PULSE 80
[2020-10-13 21:04] VITALS: BP 118/93; PULSE 55; RESP 12; TEMP 36.5; O2SAT 95
[2020-10-14 05:11] LABS: Basophils Absolute Auto 0.1 K/mm3 (0.0-0.1); Basophils Percent Auto 0.4 % (0.2-1.2); Eosinophils Absolute Auto 0.2 K/mm3 (0-0.3); Eosinophils Percent Auto 1.4 % (0-4.4); Hematocrit 28.2 % (37.0-47.0); Hemoglobin 9.1 g/dL (12.0-15.0); Immature Granulocyte Absolute 0.13 K/mm3 (0.00-0.031); Immature Granulocyte Percent A 1.1 % (0-0.5); Lymphocytes Absolute Auto 4.04 K/mm3 (0.9-3.2); Mean Corpuscular HGB Conc 32.3 g/dl (32-36); Mean Corpuscular Hemoglobin 34.9 pg (26-34); Mean Platelet Volume 11.9 fl (7.4-10.4); Monocytes Absolute Auto 1.1 K/mm3 (0.1-0.6); Monocytes Percent Auto 8.6 % (2.6-8.5); Neutrophils Absolute Auto 6.8 K/mm3 (1.3-6.7); Neutrophils Percent Auto 55.5 % (45.5-73.1); Platelet Count Result 163 k/mm3 (150-375); Red Blood Count 2.61 M/mm3 (4.2-5.4); White Blood Count 12.2 K/mm3 (4.5-10.0)
[2020-10-14 05:22] LABS: Anion Gap 4 mmol/L (8-16); Blood Urea Nitrogen 52 mg/dL (7-17); Calcium 9.8 mg/dL (8.4-10.2); Carbon Dioxide 34 mmol/L (22-30); Chloride 98 mmol/L (98-107); Estimated CRCL calculation 21 ml/min; Estimated Glomerular Filt Rate 31; Glucose 97 mg/dL (65-105); Potassium 4.1 mmol/L (3.4-5.0); Sodium 136 mmol/L (137-145)
[2020-10-14 05:41] VITALS: BP 124/40; PULSE 60; RESP 12; TEMP 36.3; O2SAT 99
[2020-10-14] MEDS: THERAPEUTIC MULTIVITAMINS/MINERALS TAB (*BKC) 1 TABLET PO (08:22)
[2020-10-14 08:23] VITALS: PULSE 60
[2020-10-14] MEDS: FAMOTIDINE 20 MG TABLET PO ×2 (08:23→17:06)
[2020-10-14] MEDS: POTASSIUM CHLORIDE 10 MEQ TABLET.ER PO (08:23)
[2020-10-14] MEDS: METOPROLOL TARTRATE 25 MG TABLET PO ×2 (08:23→22:18)
[2020-10-14] MEDS: hydroCHLOROthiazide 25 MG TABLET PO (08:23)
[2020-10-14] MEDS: SIMVASTATIN 20 MG TABLET PO (08:23)
[2020-10-14] MEDS: FOLIC ACID 1 MG TABLET PO (08:23)
[2020-10-14] MEDS: BACLOFEN 10 MG TABLET PO ×3 (08:23→17:06)
--- NOTE | 2020-10-14 12:08 | WPDNEURORHBP ---
Subjective Date/time seen: 10/14/20 12:08 85 years old lady with T11 compression fracture cord dysfunction in addition to the history of chronic lymphocytic leukemia, hypertension, hyperlipidemia, and B12 deficiency, has been involved in the physical therapy and occupational therapy most recent labs reveals WBCs are coming down to 12.2 with hemoglobin 9.1 and platelet count of 163, serum creatinine also has come down to 1.6, and the CT scan of the head was unchanged Review of Systems Review of Systems: All systems reviewed & are unremarkable except as noted in HPI and below Functional Status Ambulation Ability Ability to Ambulate 10 Feet: Standby Assistance Ability to Ambulate 50 Feet With 2 Turns: Standby Assistance Ability to Ambulate 150 Feet: Standby Assistance Ambulation Assistive Devices: Walker, Wheeled Transfers Ability Ability to Transfer In/Out of Chair: Standby Assistance Exam Narrative: Exam Narrative: , on examination she is awake alert follow the instruction, his speech of low volume but not dysphasic pupils round regular reactive to light equally, face symmetrical, tongue in the midline, motor examination reveals her to have generally decreased strength with sluggish reflexes there is no evidence of ataxia or dysmetria, she continues to have decreased sensation distally, her heart is regular and lungs are clear abdomen is soft. Objective Data Vital Signs Vital Signs: Vital Signs - 24 hr 10/13/20 14:00 10/13/20 20:19 10/13/20 21:04 Temperature 36.4 C 36.5 C Pulse Rate 63 80 55 L Respiratory Rate 16 12 Blood Pressure 137/58 L 118/93 H Pulse Oximetry 100 95 10/14/20 05:41 10/14/20 08:23 Temperature 36.3 C L Pulse Rate 60 60 Respiratory Rate 12 Blood Pressure 124/40 L Pulse Oximetry 99 Intake/Output Intake/Output: Intake & Output 10/11/20 10/12/20 10/13/20 10/14/20 23:59 23:59 23:59 23:59 Intake Total 600 600 560 240 Balance 600 600 560 240 Meds/Results Medications: Active Medications Generic Name Dose Route Start Last Admin Trade Name Freq PRN Reason Stop Dose Admin Acetaminophen 650 mg 10/07/20 11:17 10/11/20 09:01 Acetaminophen 325 Mg Tablet PO 650 mg Q6H PRN Administration Mild Pain (1-3) or Fever Baclofen 10 mg 10/08/20 13:00 10/14/20 08:23 Baclofen 10 Mg Tablet PO 10 mg TID ROSALINE Administration Ciprofloxacin 500 mg 10/14/20 00:00 10/14/20 00:00 Ciprofloxacin 500 Mg Tab PO 500 mg Q18H ROSALINE Administration Cyanocobalamin 1,000 mcg 10/06/20 09:00 10/06/20 12:21 Cyanocobalamin Inj 1,000 Mcg/Ml Vial IM 1,000 mcg Q30D ROSALINE Administration Famotidine 20 mg 10/06/20 09:00 10/14/20 08:23 Famotidine 20 Mg Tablet PO 20 mg BID ROSALINE Administration Folic Acid 1 mg 10/06/20 09:00 10/14/20 08:23 Folic Acid 1 Mg Tablet PO 1 mg DAILY ROSALINE Administration Hydrochlorothiazide 25 mg 10/06/20 09:00 10/14/20 08:23 Hydrochlorothiazide 25 Mg Tablet PO 25 mg DAILY ROSALINE Administration Metoprolol Tartrate 25 mg 10/05/20 22:45 10/14/20 08:23 Metoprolol Tartrate 25 Mg Tablet PO 25 mg Q12HR ROSALINE Administration Multivitamins/Calcium 1 tablet 10/06/20 09:00 10/14/20 08:22 Therapeutic Multivitamins/Minerals Tab (*Bkc) PO 1 tablet DAILY ROSALINE Administration Ondansetron HCl 4 mg 10/11/20 10:01 10/12/20 07:38 Ondansetron Hcl Odt 4 Mg Tablet PO 4 mg Q6H PRN Administration Nausea And Vomiting Potassium Chloride 10 meq 10/06/20 08:00 10/14/20 08:23 Potassium Chloride 10 Meq Tablet.Er PO 10 meq DAILY@0800 ROSALINE Administration Simvastatin 20 mg 10/06/20 09:00 10/14/20 08:23 Simvastatin 20 Mg Tablet PO 20 mg DAILY ROSALINE Administration Radiology Results: ITS Impressions Head CT 10/11/20 11:09 IMPRESSION: 1. No acute intracranial process. 2. Age-related changes including mild to moderate diffuse volume loss and mild scattered white matter hypoattenuation consistent with chroni
[2020-10-14 14:00] VITALS: BP 125/43; PULSE 68; RESP 13; TEMP 36.8; O2SAT 99
[2020-10-14] MEDS: CIPROFLOXACIN 500 MG TAB PO ×2 (17:06)
[2020-10-14 20:00] VITALS: O2SAT 99
[2020-10-14 22:00] VITALS: BP 119/38; PULSE 71; RESP 20; TEMP 36.7; O2SAT 94
[2020-10-14 22:18] VITALS: PULSE 68
[2020-10-15 05:45] VITALS: BP 120/49; PULSE 61; RESP 20; TEMP 36.5; O2SAT 95
[2020-10-15 08:43] VITALS: PULSE 60
[2020-10-15] MEDS: FAMOTIDINE 20 MG TABLET PO ×2 (08:43→17:26)
[2020-10-15] MEDS: METOPROLOL TARTRATE 25 MG TABLET PO ×2 (08:43→20:42)
[2020-10-15] MEDS: POTASSIUM CHLORIDE 10 MEQ TABLET.ER PO (08:43)
[2020-10-15] MEDS: hydroCHLOROthiazide 25 MG TABLET PO (08:43)
[2020-10-15] MEDS: FOLIC ACID 1 MG TABLET PO (08:43)
[2020-10-15] MEDS: BACLOFEN 10 MG TABLET PO ×3 (08:43→17:26)
[2020-10-15] MEDS: SIMVASTATIN 20 MG TABLET PO (08:43)
[2020-10-15] MEDS: THERAPEUTIC MULTIVITAMINS/MINERALS TAB (*BKC) 1 TABLET PO (08:43)
[2020-10-15] MEDS: ACETAMINOPHEN 325 MG TABLET 650 MG PO (11:20)
[2020-10-15] MEDS: CIPROFLOXACIN 500 MG TAB PO (12:00)
--- NOTE | 2020-10-15 13:47 | PCDIET ---
Nutrition Follow-Up Complete: Nutrition Diagnosis: Increased protein needs related to wounds as evidenced by stage 3 pressure ulcer noted. Nutrition Goal: Meet estimated nutritional needs Goal in progress. Intakes slightly improved with average of 45% of meals consumed since 10/13/20. Patient continues to take Santos supplements, but patient does not recall getting Ensure on trays. Clarified order with dietary department. Last recorded weight is 74.4 kg. Recommend obtaining new weight. Bowel Motility: BM x 1 on 10/14/20. Labs Reviewed: Hgb (10.8), Hct (32.9), Glu (132), BUN (46), Cr (2.0), Na (136) Meds Noted: Cipro, Vitamin B12, Pepcid, Folic Acid, Hydrochlorothiazide, Lopressor, Zocor, MVI/minerals, KCl Additional Notes: Nursing continuing to address stage III on coccyx. Encouraged patient to continue eating as well as possible with use of supplements. Will continue to monitor with same goal. Nutrition Monitoring and Evaluation: Will monitor every 5 days.
[2020-10-15 14:00] VITALS: BP 118/53; PULSE 68; RESP 20; TEMP 36.5; O2SAT 100
[2020-10-15 20:42] VITALS: PULSE 66
[2020-10-15 21:32] VITALS: BP 132/42; PULSE 72; RESP 20; TEMP 36; O2SAT 95
[2020-10-16 05:35] VITALS: BP 120/44; PULSE 60; RESP 20; TEMP 36.1; O2SAT 100
[2020-10-16] MEDS: CIPROFLOXACIN 500 MG TAB PO ×2 (05:53→23:57)
[2020-10-16] MEDS: ONDANSETRON HCL ODT 4 MG TABLET PO (08:41)
[2020-10-16 08:44] VITALS: PULSE 60
[2020-10-16] MEDS: FAMOTIDINE 20 MG TABLET PO ×2 (08:44→17:33)
[2020-10-16] MEDS: FOLIC ACID 1 MG TABLET PO (08:44)
[2020-10-16] MEDS: METOPROLOL TARTRATE 25 MG TABLET PO ×2 (08:44→20:39)
[2020-10-16] MEDS: POTASSIUM CHLORIDE 10 MEQ TABLET.ER PO (08:44)
[2020-10-16] MEDS: BACLOFEN 10 MG TABLET PO ×3 (08:44→17:34)
[2020-10-16] MEDS: THERAPEUTIC MULTIVITAMINS/MINERALS TAB (*BKC) 1 TABLET PO (08:45)
[2020-10-16] MEDS: SIMVASTATIN 20 MG TABLET PO (08:45)
[2020-10-16 14:00] VITALS: BP 129/57; PULSE 64; RESP 18; TEMP 36; O2SAT 98
--- NOTE | 2020-10-16 14:30 | WPDNEURORHBP ---
Subjective Date/time seen: 10/16/20 14:30 79 years old lady with T11 compression fracture and spinal cord dysfunction in addition to the history of chronic lymphocytic leukemia, hypertension, hyperlipidemia, and B12 deficiency, going to be discharged tomorrow morning. Been involved in the physical therapy and occupational therapy on a regular basis. Initially she had leukocytosis but now the count is coming down and so as his serum creatinine and also CT scan of the head was reportedly negative Review of Systems Review of Systems: All systems reviewed & are unremarkable except as noted in HPI and below Functional Status Ambulation Ability Ability to Ambulate 10 Feet: Independent Ability to Ambulate 50 Feet With 2 Turns: Independent Ability to Ambulate 150 Feet: Independent Ambulation Assistive Devices: Walker, Wheeled Transfers Ability Ability to Transfer In/Out of Chair: Contact Guard Exam Narrative: Exam Narrative: on examination today she is awake alert follows instructions very well. speech is of low volume but not dysphasic or dysarthric face symmetric, tongue in the oral cavity with no fasciculations, motor examination reveals her to have decreased strength but no focal motor deficit, deep tendon reflexes are sluggish but symmetrical, plantar responses are downgoing, and she has decreased sensation distally because of the underlying neuropathy there is no evidence of gross cerebellar dysfunction. Heart regular, lungs clear. abdomen soft. Objective Data Vital Signs Vital Signs: Vital Signs - 24 hr 10/15/20 20:42 10/15/20 21:32 10/16/20 05:35 Temperature 36.0 C L 36.1 C L Pulse Rate 66 72 60 Respiratory Rate 20 20 Blood Pressure 132/42 L 120/44 L Pulse Oximetry 95 100 10/16/20 08:44 10/16/20 14:00 Temperature 36.0 C L Pulse Rate 60 64 Respiratory Rate 18 Blood Pressure 129/57 L Pulse Oximetry 98 Intake/Output Intake/Output: Intake & Output 10/13/20 10/14/20 10/15/20 10/16/20 23:59 23:59 23:59 23:59 Intake Total 560 600 840 480 Balance 560 600 840 480 Meds/Results Medications: Active Medications Generic Name Dose Route Start Last Admin Trade Name Freq PRN Reason Stop Dose Admin Acetaminophen 650 mg 10/07/20 11:17 10/15/20 11:20 Acetaminophen 325 Mg Tablet PO 650 mg Q6H PRN Administration Mild Pain (1-3) or Fever Baclofen 10 mg 10/08/20 13:00 10/16/20 12:45 Baclofen 10 Mg Tablet PO 10 mg TID ROSALINE Administration Ciprofloxacin 500 mg 10/14/20 00:00 10/16/20 05:53 Ciprofloxacin 500 Mg Tab PO 500 mg Q18H ROSALINE Administration Cyanocobalamin 1,000 mcg 10/06/20 09:00 10/06/20 12:21 Cyanocobalamin Inj 1,000 Mcg/Ml Vial IM 1,000 mcg Q30D ROSALINE Administration Famotidine 20 mg 10/06/20 09:00 10/16/20 08:44 Famotidine 20 Mg Tablet PO 20 mg BID ROSALINE Administration Folic Acid 1 mg 10/06/20 09:00 10/16/20 08:44 Folic Acid 1 Mg Tablet PO 1 mg DAILY ROSALINE Administration Metoprolol Tartrate 25 mg 10/05/20 22:45 10/16/20 08:44 Metoprolol Tartrate 25 Mg Tablet PO 25 mg Q12HR ROSALINE Administration Multivitamins/Calcium 1 tablet 10/06/20 09:00 10/16/20 08:45 Therapeutic Multivitamins/Minerals Tab (*Bkc) PO 1 tablet DAILY ROSALINE Administration Ondansetron HCl 4 mg 10/11/20 10:01 10/16/20 08:41 Ondansetron Hcl Odt 4 Mg Tablet PO 4 mg Q6H PRN Administration Nausea And Vomiting Potassium Chloride 10 meq 10/06/20 08:00 10/16/20 08:44 Potassium Chloride 10 Meq Tablet.Er PO 10 meq DAILY@0800 ROSALINE Administration Simvastatin 20 mg 10/06/20 09:00 10/16/20 08:45 Simvastatin 20 Mg Tablet PO 20 mg DAILY ROSALINE Administration Radiology Results: ITS Impressions Head CT 10/11/20 11:09 IMPRESSION: 1. No acute intracranial process. 2. Age-related changes including mild to moderate diffuse volume loss and mild scattered white matter hypoattenuation consistent with chronic small vessel ischemic
[2020-10-16 20:10] VITALS: PULSE 70; RESP 20; O2SAT 98
[2020-10-16 20:28] VITALS: BP 121/47; PULSE 70; RESP 20; TEMP 35.7; O2SAT 98
[2020-10-16 20:39] VITALS: PULSE 60
[2020-10-17 05:39] VITALS: BP 124/39; PULSE 63; RESP 20; TEMP 36.3; O2SAT 96
[2020-10-17] MEDS: THERAPEUTIC MULTIVITAMINS/MINERALS TAB (*BKC) 1 TABLET PO (08:41)
[2020-10-17 08:42] VITALS: PULSE 63
[2020-10-17] MEDS: BACLOFEN 10 MG TABLET PO (08:42)
[2020-10-17] MEDS: METOPROLOL TARTRATE 25 MG TABLET PO (08:42)
[2020-10-17] MEDS: FAMOTIDINE 20 MG TABLET PO (08:42)
[2020-10-17] MEDS: SIMVASTATIN 20 MG TABLET PO (08:42)
[2020-10-17] MEDS: POTASSIUM CHLORIDE 10 MEQ TABLET.ER PO (08:43)
[2020-10-17] MEDS: FOLIC ACID 1 MG TABLET PO (08:43)
--- NOTE | 2020-10-19 16:28 | PM.DS ---
DS: Admitting Diagnosis Admitting Diagnosis Admitting Diagnosis: T11 compression fractureADMISSION FUNCTION: 85 years old right-handed female admitted to the rehab floor of [facility] with the primary rehab impairment category of smiling cord dysfunction nontraumatic in nature and etiological diagnosis of severe T11 compression fracture in addition to the ongoing history of 1. Chronic lymphocytic leukemia 2. Hypertension 3. Hyperlipidemia 4. B12 deficiency 5 pancreatic cyst 6. UTI for which patient was on IV antibiotics 7. Status post T11 posterior bi pedicular vertebral body augmentation 8. History of lymphatic leukemia diagnosed in December of 2013 9. Lymphedema 10. Restless leg syndrome. At the time of discharge her CBC revealed WBC 12.2 which has come down from 18.6 hemoglobin 9.1 MCV 108.0 but patient has known B12 deficiency. Basic metabolic panel with sodium 136 BUN 52 creatinine [address] scan of the head 11. Urine culture positive for Klebsiella pneumoniae. Patient was involved in the physical therapy and occupational therapy actively, she was able to ambulate up to 150ft independently using a wheeled walker and transfer in and out of chair with contact guard. At the time of discharge her examination revealed her to be awake alert, with normal and full speech but of low volume otherwise cranial nerve examination was normal with intact visual field motor examination revealed her to have decreased strength no focal motor deficit, he had decreased sensation distally because of the neuropathy secondary to B12 deficiency. Her functional comparisons at the time of admission and discharge were as follows Eating [Set Up Only] Oral Care supervision Toileting Hygiene partial assistance Shower/Bathing partial assistance Upper Body Dressing partial desk assistant Lower Body Dressing partial assist Donning/Kennett Footwear substantial assistance Rolling Left and Right patient is unable to do so Sit to Lying patient is unable to do so Lying to Sitting partial assistance Sit to Stand partial assistance Bed to Chair Transfers partial desk assistant Toilet Transfers partial desk assistant Car Transfers partial desk assistant Walking 10' partial assistance Walking 50' with Two Turns partial assistance Walking 150' patient is unable Curb or Step partial assistance 4 Steps unable 12 Steps unable Picking Up Object supervision [Wheelchair Mobility 50'] not applicable [Wheelchair Mobility 150'] not applicable GOALS: Eating [INDEPENDENT] Oral Care [INDEPENDENT] Toileting Hygiene [INDEPENDENT] Shower/Bathing set up Upper Body Dressing set up Lower Body Dressing set up Donning/Kennett Footwear set up Rolling Left and Right [INDEPENDENT] Sit to Lying [INDEPENDENT] Lying to Sitting [INDEPENDENT] Sit to Stand [INDEPENDENT] Bed to Chair Transfers [INDEPENDENT] Toilet Transfers [INDEPENDENT] Car Transfers [INDEPENDENT] Walking 10' [INDEPENDENT] Walking 50' with Two Turns [INDEPENDENT] Walking 150' [INDEPENDENT] Curb or Step [INDEPENDENT] 4 Steps [INDEPENDENT] 12 Steps supervision Picking Up Object [INDEPENDENT] [Wheelchair Mobility 50'] [ not applicable [Wheelchair Mobility 150'] not applicable DISCHARGE PERFORMANCE: Eating set up Oral Care [INDEPENDENT] Toileting Hygiene supervision Shower/Bathing supervision Upper Body Dressing supervision Lower Body Dressing [ supervision Donning/Kennett Footwear supervision Rolling Left and Right supervision Sit to Lying supervision Lying to Sitting supervision Sit to Stand [INDEPENDENT] Bed to Chair Transfers [INDEPENDENT] Toilet Transfers [INDEPENDENT] Car Transfers supervision Walking 10' on uneven surfaces supervision Walking 50' with Two Turns supervision Walking 150' supervision Curb or Step supervision 4 Steps supervision 12 Steps unable Picking Up Object supervision [Wheelchair Mobility 50'] not applicable [Wheelchair Mobility 150'] not applicable during the enti
== END 2020-10-17 11:45 | disposition home health service (06) | DRG 560 ==
PROVIDERS: Admitting Provider Psychiatry & Neurology Neurology; PCP Family Medicine; Visit Provider Psychiatry & Neurology Neurology
DX: M48.54XD Collapsed vertebra, not elsewhere classified, thoracic region, subsequent encounter for fracture with routine healing (principal); C91.10 Chronic lymphocytic leukemia of B-cell type not having achieved remission; N39.0 Urinary tract infection, site not specified; G95.9 Disease of spinal cord, unspecified; X50.0XXD Overexertion from strenuous movement or load, subsequent encounter; D75.89 Other specified diseases of blood and blood-forming organs; E78.5 Hyperlipidemia, unspecified; E53.8 Deficiency of other specified B group vitamins; G25.81 Restless legs syndrome; I10 Essential (primary) hypertension; I89.0 Lymphedema, not elsewhere classified; K86.9 Disease of pancreas, unspecified; B96.1 Klebsiella pneumoniae [K. pneumoniae] as the cause of diseases classified elsewhere
CPT/HCPCS: 36415; 70450; 80048; 81001; 85025; 85027; 87040; 87077; 87086; 87088; 87186; 92507; 92523; 92526; 92610; 97110; 97116; 97129; 97161; 97166; 97530; 97535; A9270; J3420